=== PATIENT | female | born 1985 | race Two or more races ===

== ENCOUNTER 2024-10-28 12:17 | Emergency (ER) | payer OTHER ==
[~2024-10-28] VITALS: Ht 160 cm; Wt 70.3 kg
[2024-10-28] MEDS ORDERED: ACIPHEX20 MG PO (13:23)
[2024-10-28] MEDS ORDERED: PEPCID AC10 MG PO (13:23)
[2024-10-28] MEDS ORDERED: ADIPEX-P37.5 M1 PO (13:24)
[2024-10-28] MEDS ORDERED: ONDANSETRON HCL 2 MG/ML VIAL ONE (13:56)
[2024-10-28] MEDS ORDERED: DICYCLOMINE HCL 10 MG CAPSULE PO ONE (13:56)
[2024-10-28] MEDS ORDERED: ONDANSETRON HCL 2 MG/ML VIAL IV ONE (14:00)
[2024-10-28] MEDS ORDERED: DICYCLOMINE HCL 20 MG TABLET PO ONE (14:00)
[2024-10-28] MEDS ORDERED: FAMOtidine 10 MG/ML (4ML VIAL) IV PUSH ONE (14:00)
[2024-10-28 14:35] LABS: HEMATOCRIT 42.5 % (36.0-45.00); HEMOGLOBIN 13.6 g/dL (12.0-15.00); MEAN CELL VOLUME 82.7 fL (80.00-100.00); MEAN CORPUSCULAR HEMOGLOBIN 26.5 pg (27.00-32.0); PLATELET COUNT 189 K/uL (150-450); RED BLOOD COUNT 5.14 M/uL (4.00-6.00); RED CELL DISTRIBUTION WIDTH 14.2 % (11.5-14.5)
[2024-10-28 15:00] LABS: ALBUMIN 3.8 gm/dL (3.4-5.0); BILIRUBIN TOTAL 0.54 mg/dL (0.3-1.2); CALCIUM 9.2 mg/dL (8.5-10.1); CREATININE SERUM 0.8 mg/dL (0.55-1.02); GFR 79.44; GLOBULINA 3.8 G/DL (2.4-3.5); POTASSIUM 3.72 mEq/L (3.5-5.1); TOTAL PROTEIN 7.6 gm/dL (6.4-8.2)
[2024-10-28] MEDS ORDERED: ZOFRAN8 MG PO (15:49)
[2024-10-28] MEDS ORDERED: PEPCID AC20 MG PO (15:49)
== END 2024-10-28 15:53 | disposition home or self-care (01) ==
LOC: ER 12:20
PROVIDERS: General Practice
DX: R11.2 Nausea with vomiting, unspecified (principal); Z20.822 Contact with and (suspected) exposure to COVID-19; Z88.8 Allergy status to other drugs, medicaments and biological substances